=== PATIENT | female | born 1935 | race Caucasian/White ===

== ENCOUNTER 2016-09-17 08:43 | Outpatient (CLI) | payer MEDICARE, BC ==
[~2016-09-17] VITALS: Ht 162.6 cm; Wt 55.0 kg
--- NOTE | ~2016-09-17 | HEMODYNAMI ---
PATIENT:ERNST BUCIO MEDICAL RECORD: [id number] : 39 LOCATION:[facility] ADMISSION DATE: 09/17/16 Generatedon:09/17/201615:43 Patient name: ERNST BUCIO Patient #: [id number] SSN: : 1935 Date of study: Page: Of Hemodynamic Procedure Report Patient Data Patient Demographics Procedure consent was obtained First Name: ERNST Gender: Female Last Name: FORTUNATO : 1935 [facility] Initial: ERNST Age: 81 year(s) Patient #: [id number] Race: Unknown Additional ID: [id number] Contact details Address: [address] [place] [address] State: [place] City: [place] Zip code: [address] Admission Admission Data Admission Date: 09/17/2016 Admission Time: 8:43 Height (in.): 64 BSA: 1.58 (m2) Height (cm.): 162.56 BMI: 20.77 (kg/m2) Weight (lbs.): 121 Weight (kg.): 54.88 Procedure Procedure Types Cath Procedure Peripheral Cath Diagnostic Procedure Cath Peripheral Sacralplasty Procedure Description Procedure Staff Name Function Placido Duron MD Performing Physician Daquan Munoz RT Scrub Antonette Berg RN Nurse Cinthia Mejía RT Bowstring Maker Hemodynamics Rest BSA: 1.58 (m2) O2 Consumption: Estimated: 214.88 (ml/min) O2 Consumption indexed : Estimated:136 (ml/min/m) Pre Cath Intra NCS Post Cath Procedure Log Time Note 13:51:35 Patient Weight : 121 lbs 13:51:39 Patient Height : 64 inches 13:53:[address] with anesthesia using tiva. see anesthesia notes of monitoring of patient during procedure. 13:55:55 Kyphon Bone Access Kit 10G opened to sterile field. 13:55:56 KYPHON CEMENT DELIVERY SYSTEM CEMENT CARTRDGES opened to sterile field. 13:55:57 Kyphon STATE ATTORNEY KIT opened to sterile field. 13:56:21 - 13:56:31 H&P Date Dictated: 09/17/2016 Within 30 days and on chart.. 13:56:33 Pre-procedure instructions explained to patient. 13:56:33 Pre-op teaching completed and patient verbalized understanding. 13:56:35 Family in waiting room. 13:56:39 Patient NPO since Midnight. 13:56:53 Signed procedure consent form obtained from patient. 13:56:56 - 15:42:56 [facility] Device Usage Item Name Manufacture Quantity Catalog Hospital Part Current Minimal Lot# / Number Charge Number Stock Stock Serial# Code Kyphon Medtronic 1 [id number] 5 Bone Access Kit 10G KYPH[employer] Medtronic 1 [id number] 5 CEMENT DELIVERY SYSTEM CEMENT CARTRDGES Kyphon Medtronic 1 [id number] 5 STATE ATTORNEY KIT Signature Audit [place] Stage Time Signature Unsigned Intra-Procedure 09/17/2016 Cinthia Mejía 3:43:43 PM RT(R) [facility] [address] [facility] [place] [address]
[~2016-09-17 08:43] MED LIST: ACETAMINOPHEN500 M1 PO; ASPIRIN EC81 M1 PO; CALTRATE 600 M600 M1 PO; COLACE100 MG PO; COZAAR50 MG PO; FLUTICASONE PRO16 GM NASAL; GABAPENTIN100 MG PO; GAS-X80 MG PO; IBUPROFEN800 MG PO; IPRATROPIUM BR21 MCG NASAL; KLOR-CON 1010 MEQ PO; LANOXIN125 MCG PO; METOPROLOL TART50 MG PO; MILK OF MAGNESI30 ML PO; NORCO 7.5/325 T1 TA1 PO; PHENERGAN25 M1 PO; PLAQUENIL200 MG PO; PREDNISONE10 MG PO; PROTONIX40 MG PO; ULTRAM50 MG PO; VENTOLIN HFA18 GM INH; VITAMIN B COMPL1 TAB PO; VITAMIN D5000 UNIT PO; XANAX0.25 MG PO
[2016-09-17 09:55] LABS: BASOPHILS 0.4 % (0.0-2.0); EOSINOPHILS 2.3 % (0-7); HEMATOCRIT 37.5 % (36.0-48.0); HEMOGLOBIN 11.8 g/dL (12-16); IMMATURE GRANULOCYTES 0.5 % (0-5); LYMPHOCYTES 11.4 % (15-50); MCH 28.9 pg (26.0-34.0); MCHC 31.5 g/dL (31.0-37.0); MCV 91.9 fL (80.0-100.0); MEAN PLATELET VOLUME 8.9 fL (7.4-10.4); MONOCYTES 6.9 % (2-11); NEUTROPHILS 78.5 % (40-80); PLATELET COUNT 211 10x3/uL (130-400); RBC 4.08 10x6/uL (4.00-5.40); RDW 14.6 % (11.5-14.5); WBC 8.2 10x3/uL (4.8-10.8)
[2016-09-17 10:06] LABS: APTT 25.9 SECONDS (22.8-39.4); INR 0.96 (0.85-1.17); PROTIME 12.6 SECONDS (11.6-15.0)
[2016-09-17 10:15] LABS: ANION GAP 9.3 mmol/L (8-16); CALCIUM 8.8 mg/dL (8.5-10.1); CARBON DIOXIDE 31.8 mmol/L (21.0-32.0); CREATININE - SERUM 0.8 mg/dL (0.6-1.3); POTASSIUM - SERUM 4.1 mmol/L (3.5-5.1)
[2016-09-17 10:29] VITALS: BP 141/80; Ht 162.6 cm; Wt 55.0 kg
--- NOTE | 2016-09-17 17:35 | NUR ---
1705 REPORT FROM RITA BROWN R.N.
--- NOTE | 2016-09-17 18:04 | NUR ---
1800 IV DCD CATHETER INTACT WENT OVER DISCHARGE INSTRUCTIONS VERTEBROPLAST INSTRUCTION SHEEET AND APPOINTMENT AND HOME MEDS. VERBALLY UNDERSTANDS UP AND VOIDED.
--- NOTE | 2016-09-17 18:04 | NUR ---
1745 UP AND WALKED NO COS VOICED.
--- NOTE | 2016-09-17 18:23 | NUR ---
1810 PATIENT DISCHARGED HOME VIA W/C WITH SON.
== END 2016-09-17 18:10 | disposition home or self-care (01) ==
LOC: D.OPS 08:43 → D.RAD 11:00 → D.OPS 11:00
PROVIDERS: General Practice
DX: M84.48XA Pathological fracture, other site, initial encounter for fracture (principal); M85.80 Other specified disorders of bone density and structure, unspecified site